=== PATIENT | male | born 1990 | race Caucasian/White ===

== ENCOUNTER 2022-09-25 15:25 | Emergency (ER) | payer SELFPAY ==
[~2022-09-25] VITALS: Ht 172.7 cm; Wt 100.0 kg
[2022-09-25 17:09] LABS: CHLORIDE 106 mEq/L (98-107)
[2022-09-25 17:46] LABS: BASOPHILS % 0.6 % (0.0-2.0); EOSINOPHILS % 1.6 % (0.0-5.0); HEMATOCRIT. 36.6 % (42.0-52.0); HEMOGLOBIN. 13.1 g/dL (14.0-18.0); LYMPHOCYTES % 23.8 % (20.0-50.0); MEAN CORPUSCULAR HEMOGLOBIN 36.9 pg (28.0-32.0); MEAN CORPUSCULAR VOLUME 103.5 fL (80.0-94.0); MONOCYTES % 5.6 % (2.0-8.0); NEUTROPHILS % 68.4 % (40.0-76.0); RED BLOOD CELL COUNT 3.54 mill/uL (4.7-6.1); RED CELL DISTRIBUTION WIDTH 13.1 % (11.6-14.6)
[2022-09-25] MEDS ORDERED: KETOROLAC 30MG/ML VIAL IV NR (18:15)
[2022-09-25] MEDS ORDERED: MAGNESIUM/ALUMINUM HYDROXIDE/SIMETHICONE 30ML UDC PO ONE (19:00)
[2022-09-25] MEDS ORDERED: ONDANSETRON HCL 4MG/2ML INJ IV ONE (19:00)
[2022-09-25] MEDS ORDERED: FAMOTIDINE 20MG/2ML VIAL IV ONE (19:00)
[2022-09-25 21:46] VITALS: BP 121/66
[2022-09-25] MEDS ORDERED: IOHEXOL-300 100 ML BOTTLE ONE (23:41)
[2022-09-27 13:07] LABS: PLATELET 41 x1000/uL (130-400)
== END 2022-09-25 21:48 | disposition home or self-care (01) ==
LOC: ER 15:25
DX: R10.13 Epigastric pain (principal); R07.2 Precordial pain; I10 Essential (primary) hypertension; J45.909 Unspecified asthma, uncomplicated
CPT/HCPCS: 36415; 71045; 74177; 80053; 83880; 84484; 85025; 93005; 96374; 96375; 99285; J1885; J2405; J3490; Q9967; Z7610